=== PATIENT | male | born 1995 | race Caucasian/White ===

== ENCOUNTER 2018-07-21 16:35 | Emergency (ER) | payer OTHER ==
[~2018-07-21] VITALS: Ht 172.7 cm; Wt 70.5 kg
[~2018-07-21 16:35] MED LIST: CLEOCIN300 MG PO; LORTAB 10-325 M1 TAB PO; NO
[2018-07-21] MEDS ORDERED: AMOXICILLIN500 MG PO (18:14)
[2018-07-21] MEDS ORDERED: LORTAB 1010 MG PO (18:14)
[2018-07-21 18:22] VITALS: BP 129/59
== END 2018-07-21 18:22 | disposition home or self-care (01) ==
LOC: ED 16:35
DX: S60.454A Superficial foreign body of right ring finger, initial encounter (principal); F17.220 Nicotine dependence, chewing tobacco, uncomplicated; W45.8XXA Other foreign body or object entering through skin, initial encounter; Y93.89 Activity, other specified; Y92.89 Other specified places as the place of occurrence of the external cause; Y99.0 Civilian activity done for income or pay

== ENCOUNTER 2018-07-28 10:14 | Emergency (ER) | payer OTHER ==
[~2018-07-28] VITALS: Ht 172.7 cm; Wt 68.2 kg
[~2018-07-28 10:14] MED LIST changes: +AMOXICILLIN500 MG PO; +LORTAB 1010 MG PO
[2018-07-28 10:51] VITALS: BP 137/82
== END 2018-07-28 10:56 | disposition home or self-care (01) ==
LOC: ED 10:14
DX: S60.45 Superficial foreign body of fingers (principal); Z48.02 Encounter for removal of sutures